=== PATIENT | female | born 1985 | race Caucasian/White ===

== ENCOUNTER 2018-07-10 14:20 | Emergency (ER) | payer MEDICAID ==
[~2018-07-10] VITALS: Ht 162.6 cm; Wt 91.0 kg
[2018-07-10 14:31] VITALS: BP 146/96
[2018-07-10] MEDS ORDERED: LORazepam 1 MG tablet PO ONE (16:05)
== END 2018-07-10 16:18 | disposition home or self-care (01) ==
LOC: ER 14:22
DX: F41.0 Panic disorder [episodic paroxysmal anxiety] (principal); F32.9 Major depressive disorder, single episode, unspecified; F17.200 Nicotine dependence, unspecified, uncomplicated; Z98.890 Other specified postprocedural states
CPT/HCPCS: 99284